=== PATIENT | male | born 1990 | race Hispanic/Latino ===

== ENCOUNTER 2019-11-07 07:29 | Emergency (ER) | payer SELFPAY ==
[2019-11-07 07:49] VITALS: BP 155/80
--- NOTE | 2019-11-07 10:14 | Emergency Department Report ---
- General Chief complaint: Animal Bite Stated complaint: DOG BITE ON FINGER Time Seen by Provider: 11/07/19 10:12 Source: patient Mode of arrival: Ambulatory Limitations: No Limitations - History of Present Illness Initial comments: 28-year-old male comes to the ER with a dog bite to his right fifth finger. It is his dog. The dog is up-to-date on vaccines. Patient had a tetanus shot 3 years ago. Bleeding is controlled. Neurovascularly intact. Patient will need wound care and antibiotics - Related Data Previous Rx's Medication Instructions Recorded Last Taken Type Amoxicillin [Trimox CAP] 500 mg PO BID #20 capsule 11/07/19 Unknown Rx Allergies Allergy/AdvReac Type Severity Reaction Status Date / Time No Known Allergies Allergy Unverified 11/07/19 07:45 Abscess Boil HPI - HPI Chief Complaint: Animal Bite Stated Complaint: DOG BITE ON FINGER Time Seen by Provider: 11/07/19 10:12 Home Medications: Previous Rx's Medication Instructions Recorded Last Taken Type Amoxicillin [Trimox CAP] 500 mg PO BID #20 capsule 11/07/19 Unknown Rx Allergies/Adverse Reactions: Allergies Allergy/AdvReac Type Severity Reaction Status Date / Time No Known Allergies Allergy Unverified 11/07/19 07:45 ED Review of Systems ROS: Stated complaint: DOG BITE ON FINGER Other details as noted in HPI Comment: All other systems reviewed and negative ED Past Medical Hx - Past Medical History Previous Medical History?: No - Surgical History Past Surgical History?: No - Family History Family history: no significant - Social History Smoking Status: Current Every Day Smoker Substance Use Type: None - Medications Home Medications: Home Medications Medication Instructions Recorded Confirmed Last Taken Type Amoxicillin [Trimox CAP] 500 mg PO BID #20 capsule 11/07/19 Unknown Rx ED Physical Exam - General Limitations: No Limitations General appearance: alert, in no apparent distress - Head Head exam: Present: atraumatic, normocephalic - Eye Eye exam: Present: normal appearance - ENT ENT exam: Present: mucous membranes moist - Neck Neck exam: Present: normal inspection - Respiratory Respiratory exam: Present: normal lung sounds bilaterally. Absent: respiratory distress - Cardiovascular Cardiovascular Exam: Present: regular rate, normal rhythm. Absent: systolic murmur, diastolic murmur, rubs, gallop - GI/Abdominal GI/Abdominal exam: Present: soft, normal bowel sounds - Rectal Rectal exam: Present: deferred - Extremities Exam Extremities exam: Present: normal inspection - Back Exam Back exam: Present: normal inspection - Neurological Exam Neurological exam: Present: alert, oriented X3 - Psychiatric Psychiatric exam: Present: normal affect, normal mood - Skin Skin exam: Present: warm, dry, normal color, other. Absent: rash ED Course Vital Signs 11/07/19 07:46 Temperature 98.4 F Pulse Rate 66 Respiratory 16 Rate Blood Pressure 155/80 [Right] O2 Sat by Pulse 98 Oximetry ED Medical Decision Making - Medical Decision Making Patient has a dog bite to his fifth digit. And involves the nailbed. Wound is cleaned and dressed. Tdap is up-to-date dog is up-to-date on shots Patient is neurovascularly intact Patient educated on wound care Patient being discharged home on antibiotics. Vital Signs 11/07/19 07:46 Temperature 98.4 F Pulse Rate 66 Respiratory 16 Rate Blood Pressure 155/80 [Right] O2 Sat by Pulse 98 Oximetry - Differential Diagnosis Dog bite Critical care attestation.: If time is entered above; I have spent that time in minutes in the direct care of this critically ill patient, excluding procedure time. ED Disposition Clinical Impression: Dog bite Disposition: DC-01 TO HOME OR SELFCARE Is pt being admited?: No Does the pt Need Aspirin: No Condition: Stable Instructions: Animal Bite (ED) Additional Instructions: motrin or tylenol for pain clean with soap and water; cover with neosporin and wrap every 12 hours med as ordered today until gone Prescriptions: Amoxicillin [Trimox CAP] 500 mg PO BID #20 capsule Referrals: RACHEL PATRICIA MD [Staff Physician] - 3-5 Days Time of Disposition: 10:13
== END 2019-11-07 10:35 | disposition home or self-care (01) ==
LOC: ED 07:29
DX: S61.256A Open bite of right little finger without damage to nail, initial encounter (principal); F17.200 Nicotine dependence, unspecified, uncomplicated; Z79.899 Other long term (current) drug therapy; W54.0XXA Bitten by dog, initial encounter; Y93.89 Activity, other specified; Y92.89 Other specified places as the place of occurrence of the external cause; Y99.8 Other external cause status
CPT/HCPCS: 99281